=== PATIENT | male | born 1955 | race Caucasian/White ===

== ENCOUNTER 2017-05-28 18:55 | Emergency (ER) | payer SELFPAY ==
[2017-05-28 20:01] VITALS: O2SAT 99
--- NOTE | 2017-05-28 20:03 | C.PDOC ---
History Of Present Illness 62 year old male presents to the ED c/o left chest wall tenderness that worsens with movement and deep inspiration. Patient states he has been having a cough for the past 2 weeks that has been getting progressively worse. Patient states that today he coughed really hard today and his chest wall pain worsened. Patient is speaking in complete sentences. Patient denies fever, chills, SOB, headache, recent travel, sick contacts. Time Seen by Provider: 05/28/17 20:02 Chief Complaint (Nursing): Chest Pain History Per: Patient History/Exam Limitations: no limitations Onset/Duration Of Symptoms: Days Current Symptoms Are (Timing): Still Present Quality: "Pain" Modifying Factors: None Exacerbating Factors: Movement, Deep Breathing Recent travel outside of the [place]: No Additional History Per: Patient Past Medical History Reviewed: Historical Data, Nursing Documentation, Vital Signs Vital Signs: Last Vital Signs Temp 97.9 F 05/28/17 20:16 Pulse 82 05/28/17 20:16 Resp 18 05/28/17 20:16 BP 137/88 05/28/17 20:16 Pulse Ox 99 05/28/17 20:36 - Medical History PMH: No Chronic Diseases Surgical History: No Surg Hx Family History: States: Unknown Family Hx - Social History Hx Alcohol Use: Yes Hx Substance Use: No - Immunization History Hx Tetanus Toxoid Vaccination: No Hx Influenza Vaccination: No Hx Pneumococcal Vaccination: No Review Of Systems Constitutional: Negative for: Fever, Chills Cardiovascular: Positive for: Chest Pain. Negative for: Palpitations Respiratory: Positive for: Cough. Negative for: Shortness of Breath Gastrointestinal: Negative for: Nausea, Vomiting, Abdominal Pain Musculoskeletal: Negative for: Neck Pain, Back Pain Skin: Negative for: Rash Neurological: Negative for: Weakness, Numbness, Headache Physical Exam - Physical Exam Appears: Non-toxic, No Acute Distress Skin: Warm, Dry Head: Normacephalic Eye(s): bilateral: Normal Inspection Nose: No Discharge, No Deformity Oral Mucosa: Moist Throat: No Erythema, No Exudate Neck: Normal ROM, Supple Chest: Symmetrical, Tenderness (left mid axillary chest wall reproducible with palpation ), No Other (no crepitus ) Cardiovascular: Rhythm Regular, No Murmur Respiratory: No Decreased Breath Sounds, No Rales, No Rhonchi, No Wheezing Gastrointestinal/Abdominal: Soft, No Tenderness, No Guarding, No Rebound Extremity: Normal ROM, No Pedal Edema, No Calf Tenderness, Capillary Refill (< 2 seconds), No Deformity, No Swelling Neurological/Psych: Oriented x3 Gait: Steady ED Course And Treatment - Laboratory Results Result Diagrams: 05/28/17 20:53 05/28/17 20:53 ECG: Interpreted By Me, Viewed By Me ECG Rhythm: Sinus Rhythm (78), Nonspecific Changes O2 Sat by Pulse Oximetry: 99 (On RA) Pulse Ox Interpretation: Normal Reevaluation Time: 22:07 Reassessment Condition: Improved Disposition Counseled Patient/Family Regarding: Studies Performed, Diagnosis, Need For Followup, Rx Given - Disposition Referrals: [facility] [Outside] [facility] [Outside] Disposition: HOME/ ROUTINE Disposition Time: 20:02 Condition: FAIR Additional Instructions: Please return if symptoms recur Prescriptions: Albuterol HFA [Ventolin HFA 90 mcg/actuation (8 g)] 2 puff IH [id number] #1 puff Polyethylene Glycol 3350 [Miralax] 17 gm PO DAILY #270 ml traMADol [Ultram] 50 mg PO TID PRN #15 tab PRN Reason: Pain, Moderate (4-7) Instructions: Chest Wall Pain (ED) Forms: [email or web address] [facility] ([place]uan) - Clinical Impression Clinical Impression: Chest wall pain, Cough - Scribe Statement The provider has reviewed the documentation as recorded by the Scribe Sai Quezada All medical record entries made by the Scribe were at my direction and personally dictated by me. I have reviewed the chart and agree that the record accurately reflects my personal performance of the history, physical exam, medical decision making, and the department course for this patient. I have also personally directed, reviewed, and agree with the discharge instructions and disposition.
[2017-05-28] MEDS ORDERED: Morphine 4 MG/ML VIAL ONE (20:43)
[2017-05-28 20:57] LABS: BASO # 0.1 K/uL (0.0-0.2); BASO % 0.9 % (0.0-2.0); EOS # 0.5 K/uL (0.0-0.7); EOS % 6.4 % (0.0-4.0); HEMOGLOBIN 14.3 g/dL (12.0-18.0); LYMPH # 1.8 K/uL (1.0-4.3); LYMPH % 21.3 % (20.0-40.0); MEAN CELL VOLUME 88.9 fL (80.0-94.0); MEAN CORPUSCULAR HEMOGLOBIN 31.6 pg (27.0-31.0); MEAN CORPUSCULAR HGB CONC 35.6 g/dL (33.0-37.0); MEAN PLATELET VOLUME 7.4 fL (7.2-11.7); MONO # 0.6 K/uL (0.0-0.8); MONO % 7.1 % (0.0-10.0); NEUT # 5.4 K/uL (1.8-7.0); NEUT % 64.3 % (50.0-75.0); RBC 4.52 Mil/uL (4.40-5.90); RED CELL DISTRIBUTION WIDTH 12.4 % (11.5-14.5); WHITE BLOOD COUNT 8.4 K/uL (4.8-10.8)
[2017-05-28 21:07] LABS: INR 1.1
[2017-05-28 21:17] LABS: ALBUMIN 3.7 g/dL (3.5-5.0); ALT/SGPT 17 U/L (21-72); AST/SGOT 26 U/L (17-59); BLOOD UREA NITROGEN 19 mg/dL (9-20); CALCIUM 8.6 mg/dl (8.6-10.4); GFR AFRICAN-AMERICAN > 60; GFR NON-AFRICAN AMERICAN > 60
[2017-05-28 21:25] VITALS: PULSE 82; TEMP 97.9
--- NOTE | 2017-05-28 21:41 | CT ---
EXAM: CT Chest Without Intravenous Contrast CLINICAL HISTORY: 62 years old, male; Pain; Chest wall pain; Additional info: Chest pain TECHNIQUE: Axial computed tomography images of the chest without intravenous contrast. All CT scans at this facility use one or more dose reduction techniques, viz.: automated exposure control; ma/kV adjustment per patient size (including targeted exams where dose is matched to indication; i.e. head); or iterative reconstruction technique. Coronal and sagittal reformatted images were created and reviewed. COMPARISON: No relevant prior studies available. FINDINGS: Lungs: Subsegmental atelectasis left lung base. Pleural space: Unremarkable. No pneumothorax. No significant effusion. Heart: Unremarkable. No cardiomegaly. No significant pericardial effusion. Bones/joints: Diffuse spinal degenerative changes. No acute fracture. No dislocation. Soft tissues: Unremarkable. Vasculature: Unremarkable. No thoracic aortic aneurysm. Lymph nodes: Unremarkable. No enlarged lymph nodes. Adrenals: 1.3 CM right adrenal lesion, probable adenoma. IMPRESSION: 1. Subsegmental atelectasis left lung base. 2. Remainder of findings as above.
[2017-05-28 22:42] VITALS: BP 121/79; RESP 16
--- NOTE | 2017-05-29 12:42 | CARD ---
APPROVED REPORT EKG Measurement Heart [id number] <Conclusion> Normal sinus rhythm Possible Posterior infarct, age undetermined Abnormal ECG
== END 2017-05-28 23:15 | disposition home or self-care (01) ==
LOC: C.ER 18:55
DX: R07.89 Other chest pain (principal); R05 Cough
CPT/HCPCS: 71250; 80053; 84484; 85025; 85610; 85730; 93005; 96374; 96375; 99283; J1885; J2270; J2405